=== PATIENT | male | born 1995 | race Caucasian/White ===

== ENCOUNTER 2018-09-23 02:25 | Emergency (ER) | payer OTHER ==
[2018-09-23] MEDS ORDERED: KETOROLAC TROMETHAMINE INJ/PF 30 MG/1 ML SDV IV ONE (04:42)
[2018-09-23] MEDS ORDERED: ONDANSETRON HCL INJ/PF 4 MG/2 ML SDV IV ONE (04:42)
[2018-09-23] MEDS ORDERED: NORMAL SALINE 1000 ML 1,000 ML IV ONE (04:42)
--- NOTE | 2018-09-23 04:43 | ER Document Report ---
ED GI/ - General Chief Complaint: Flank Pain Stated Complaint: Flank pain Time Seen by Provider: 09/23/18 04:35 Notes: Patient is a 23-year-old male that comes emergency department for chief complaint of sudden onset of severe right flank pain radiating around into his right abdomen. He also states it feels like it goes down to his buttocks and the top of his leg, he denies it going down his leg. He reports nausea but denies vomiting. He broke out into a sweat with the pain. He is never had a kidney stone before, he denies injury to his back, he denies history of IV drug abuse, he denies any daily medications or diagnosed medical problems. TRAVEL OUTSIDE OF THE [place] IN LAST 30 DAYS: No - Related Data Allergies/Adverse Reactions: No Known Allergies Allergy (Unverified 09/23/18 02:33) Past Medical History - General Information source: Patient - Social History Smoking Status: Never Smoker Frequency of alcohol use: Social Drug Abuse: None Lives with: Family Family History: Reviewed & Not Pertinent Surgical Hx: Negative - Immunizations Immunizations up to date: Yes Hx Diphtheria, Pertussis, Tetanus Vaccination: Yes Review of Systems - Review of Systems Constitutional: No symptoms reported EENT: No symptoms reported Cardiovascular: No symptoms reported Respiratory: No symptoms reported Gastrointestinal: See HPI Genitourinary: See HPI Male Genitourinary: No symptoms reported Musculoskeletal: See HPI Skin: No symptoms reported Hematologic/Lymphatic: No symptoms reported Neurological/Psychological: No symptoms reported Physical Exam - Vital signs Vitals: Temp Pulse Resp BP Pulse Ox 97.6 F 78 20 90/63 L 100 09/23/18 02:34 09/23/18 02:34 09/23/18 02:34 09/23/18 02:34 09/23/18 02:34 - Notes Notes: GENERAL: Alert, lying on his left side, appears to be in pain HEAD: Normocephalic, atraumatic. EYES: Pupils equal, round, and reactive to light. Extraocular movements intact. ENT: Oral mucosa moist, tongue midline. Oropharynx unremarkable. Airway patent. LUNGS: Clear to auscultation bilaterally, no wheezes, rales, or rhonchi. No respiratory distress. HEART: Regular rate and rhythm. No murmur ABDOMEN: Very mild generalized tenderness over the right side of the abdomen, nonspecific, no guarding. GENITOURINARY: No swelling of the testicles, unremarkable exam EXTREMITIES: Moves all 4 extremities spontaneously. No edema, normal radial and dorsalis pedis pulses bilaterally. No cyanosis. BACK: Right-sided CVA tenderness. No midline tenderness, no saddle anesthesia, negative straight leg raise, no pain with palpation over the buttocks, normal distal neurovascular exam. NEUROLOGICAL: Alert and oriented x3. Normal speech. Cranial nerves II through XII grossly intact. PSYCH: Normal affect, normal mood. SKIN: Mildly diaphoretic Course - Re-evaluation Re-evalutation: Patient's physical exam does not show sciatica, neurological deficit, is most consistent with passing kidney stone with right CVA tenderness, generalized mild right abdominal tenderness, diaphoresis, obvious pain. Patient's Symptoms completely resolved with Toradol, Zofran, IV fluids. On reevaluation he is sitting up, smiling, has no complaints. Because he has never had a kidney stone this was confirmed with CAT scan. This was discussed with patient. CAT scan shows punctate right-sided ureterolithiasis at the right UVJ with some hydronephrosis. CBC shows l eukocytosis, chemistry shows creatinine of 1.3 (he was given IV fluids), urinalysis shows hematuria but is otherwise nonspecific. Discussed with patient. Provided with symptom management, urology referral, discussed follow- up and return precautions. Patient states satisfaction and agreement with plan. Still asymptomatic at time of discharge. - Vital Signs Vital signs: Temp Pulse Resp BP Pulse Ox 98.8 F 69 16 135/75 H 98 09/23/18 06:57 09/23/18 06:57 09/23/18 06:57 09/23/18 06:57 09/23/18 06:57 - Laboratory Result Diagrams: 09/23/18 05:04 09/23/18 05:04 Laboratory results interpreted by me: 09/23/18 09/23/18 09/23/18 05:04 05:04 05:46 WBC 17.5 H Seg Neutrophils % 82.8 H Lymphocytes % 11.3 L Absolute Neutrophils 14.5 H Creatinine 1.30 H Glucose 112 H Calcium 10.3 H Urine Ketones TRACE H Urine Blood MODERATE H Discharge - Discharge Clinical Impression: Ureterolithiasis, Right flank pain Abdominal pain Qualifiers: Abdominal location: upper abdomen, unspecified Qualified Code(s): R10.10 - Upper abdominal pain, unspecified Disposition: HOME, SELF-CARE Additional Instructions: You are passing a small kidney stone on the right side. The remaining work-up does not show any concerning findings. You most likely will pass this at home. Take the pain medication if needed, the ibuprofen can help with this, take Zofran if needed for nausea. Drink plenty of fluids. If symptoms continue follow-up with the urology referral listed below. Return if you worsen including severe worsening pain, vomiting, fever/chills, or any other concerning symptoms. [facility] [address] [place] [address] Mary Jackson MD Doctor in [place], [place] Address: [facility] [address] [place] [address] Prescriptions: Ibuprofen [Motrin 600 mg Tablet] 600 mg PO Q6HP PRN #30 tablet PRN Reason: Ondansetron [Zofran Odt 4 mg Tablet] 1 - 2 tab PO Q4H PRN #15 tab.rapdis PRN Reason: For Nausea/Vomiting Oxycodone HCl/Acetaminophen [Percocet 5-325 mg Tablet] 1 - 2 tab PO TID PRN #15 tablet PRN Reason: Forms: Return to Work
[2018-09-23 05:51] LABS: ABSOLUTE NEUT (AUTO) 14.5 10^3/uL (1.7-8.2); BASOPHILS % (AUTO) 0.2 % (0-2); EOSINOPHILS % (AUTO) 0.2 % (0-6); HEMATOCRIT 48.3 % (37.9-51.0); HEMOGLOBIN 16.6 g/dL (13.5-17.0); LYMPHOCYTES % (AUTO) 11.3 % (13-45); MEAN CORPUSCULAR HEMOGLOBIN 29.9 pg (27.0-33.4); MEAN CORPUSCULAR HGB CONC 34.3 g/dL (32.0-36.0); MEAN CORPUSCULAR VOLUME 87 fl (80-97); MONOCYTES % (AUTO) 5.5 % (3-13); PLATELET COUNT 234 10^3/uL (150-450); RED BLOOD COUNT 5.54 10^6/uL (4.35-5.55); RED CELL DISTRIBUTION WIDTH 13.1 % (11.5-14.0); SEGMENTED NEUTROPHILS % (AUTO) 82.8 % (42-78); TOTAL CELLS COUNTED % (AUTO) 100 %; WHITE BLOOD COUNT 17.5 10^3/uL (4.0-10.5)
--- NOTE | 2018-09-23 06:01 | RADIOLOGY REPORT (SQ) ---
CLINICAL HISTORY: severe right flank/abd pain COMPARISON: None. TECHNIQUE: CT ABDOMEN PELVIS WITHOUT IV CONTRAST on 09/23/2018 4:42 AM CDT This exam was performed according to our departmental dose-optimization program, which includes automated exposure control, adjustment of the mA and/or kV according to patient size and/or use of iterative reconstruction technique. FINDINGS: Lower lungs are clear. Abdomen: The liver is normal in appearance. There is no biliary dilatation. Gallbladder is normal in appearance. The pancreas and spleen are normal in appearance. Adrenal glands and left kidney are unremarkable. There is mild right hydronephrosis. There is a punctate right UVJ calculus. Abdominal aorta is normal in course and caliber without aneurysm. There is no free air. There is no retroperitoneal adenopathy. Pelvis: There is no bowel obstruction. Urinary bladder is unremarkable. There is no free fluid. Appendix is normal. Skeleton: There are no acute osseous findings. No suspicious bony lesions. IMPRESSION: Mildly obstructing punctate right UVJ calculus.
[2018-09-23 06:03] LABS: APPEARANCE,URINE CLEAR; BILIRUBIN,URINE NEGATIVE (NEGATIVE); COLOR,URINE YELLOW; GLUCOSE, URINE NEGATIVE (NEGATIVE); KETONES,URINE TRACE mg/dL (NEGATIVE); LEUKOCYTE ESTERASE,URINE NEGATIVE (NEGATIVE); NITRITE,URINE NEGATIVE (NEGATIVE); PROTEIN,URINE NEGATIVE (NEGATIVE); URINE SPECIFIC GRAVITY 1.025; UROBILINOGEN,URINE NEGATIVE mg/dL (<2.0)
[2018-09-23 06:12] LABS: ALKALINE PHOSPHATASE 62 U/L (38-126); ANION GAP 10 (5-19); ASPARTATE AMINO TRANSFERASE 39 U/L (17-59); BILIRUBIN,DIRECT 0.3 mg/dL (0.0-0.4); BILIRUBIN,TOTAL 0.8 mg/dL (0.2-1.3); BLOOD UREA NITROGEN 15 mg/dL (7-20); CALCIUM 10.3 mg/dL (8.4-10.2); CARBON DIOXIDE 28 mmol/L (22-30); CHLORIDE 101 mmol/L (98-107); GLUCOSE 112 mg/dL (75-110); POTASSIUM 4.3 mmol/L (3.6-5.0); TOTAL PROTEIN 7.8 g/dL (6.3-8.2)
[2018-09-23 06:24] LABS: ADD MANUAL MICROSCOPIC YES
[2018-09-23 06:25] LABS: BACTERIA,URINE TRACE /HPF; CALCIUM OXALATE CRYSTALS,UR RARE /HPF
[2018-09-23 07:00] VITALS: BP 135/75
== END 2018-09-23 07:08 | disposition home or self-care (01) ==
LOC: ER 02:25
DX: N13.2 Hydronephrosis with renal and ureteral calculous obstruction (principal); R31.9 Hematuria, unspecified; R10.9 Unspecified abdominal pain; R10.10 Upper abdominal pain, unspecified; R11.0 Nausea; D72.829 Elevated white blood cell count, unspecified
CPT/HCPCS: 36415; 85025; 80053; 81001; 74176; J1885; J2405; J7030; 96361; 96374; 96375; 99284